=== PATIENT | female | born 1960 | race Caucasian/White ===

== ENCOUNTER 2017-08-14 14:10 | Emergency (ER) | payer BC ==
--- NOTE | 2017-08-14 14:19 | EDM.PDOC ---
ED HPI GENERAL MEDICAL PROBLEM - General Chief Complaint: Upper Extremity Injury/Pain Stated Complaint: INJURY TO RIGHT ARM Time Seen by Provider: 08/14/17 14:14 Source of Information: Reports: Patient History Limitations: Reports: No Limitations - History of Present Illness INITIAL COMMENTS - FREE TEXT/NARRATIVE: Patient states she was going up stairs, tripped, and her right wrist landed on one of the stair edges. She has pain with movement and is in mild discomfort. She denies hitting her head, no loc, no chest pain. She denies drinking, does smoke 1/2 ppd cigarettes, as well as daily marijuana use. No primary doctor, denies surgeries, denies health problems. Takes ibuprofen for pain prn as her only medication. Onset: Today, Sudden Duration: Getting Worse Location: Reports: Upper Extremity, Right Right Wrist Pain Score (Numeric/FACES): 8 - Related Data Allergies Allergy/AdvReac Type Severity Reaction Status Date / Time No Known Allergies Allergy Verified 08/14/17 14:33 Home Meds: Home Meds . [No Known Home Meds] 08/14/17 [History] Review of Systems - Review of Systems Review Of Systems: See Below Constitutional: Reports: No Symptoms Eyes: Reports: No Symptoms Ears: Reports: No Symptoms Nose: Reports: No Symptoms Mouth/Throat: Reports: No Symptoms Respiratory: Reports: No Symptoms Cardiovascular: Reports: No Symptoms GI/Abdominal: Reports: No Symptoms Genitourinary: Reports: No Symptoms Musculoskeletal: Reports: Arm Pain, Hand Pain (right side) Skin: Reports: Wound (abrasions to several toes) Neurological: Reports: No Symptoms Psychiatric: Reports: No Symptoms ED EXAM, GENERAL - Physical Exam Exam: See Below Exam Limited By: No Limitations General Appearance: Alert, WD/WN, Mild Distress Eye Exam: Bilateral Eye: EOMI, Normal Inspection, PERRL Head: Atraumatic, Normocephalic Neck: Normal Inspection, Supple, Non-Tender, Full Range of Motion Respiratory/Chest: No Respiratory Distress, Lungs Clear, Normal Breath Sounds, No Accessory Muscle Use, Chest Non-Tender Cardiovascular: Normal Peripheral Pulses, Regular Rate, Rhythm, No Edema, No Gallop, No JVD, No Murmur, No Rub Extremities: Arm Pain Neurological: Alert, Oriented, CN II-XII Intact, Normal Cognition, Normal Gait, Normal Reflexes, No Motor/Sensory Deficits Psychiatric: Normal Affect, Normal Mood Skin Exam: Warm, Dry, Normal Color, No Rash, Wound/Incision (abrasions to the dorsalis aspect of right toes 2-4) Lymphatic: No Adenopathy Course - Vital Signs Last Recorded V/S: Last Vital Signs Temp 36.6 C 08/14/17 14:20 Pulse 94 08/14/17 14:20 Resp 16 08/14/17 14:20 BP 167/87 H 08/14/17 14:20 Pulse Ox - Orders/Labs/Meds Orders: Active Orders 24 hr Category Date Time Status Elbow 2V Rt [CR] Stat Exams 08/14/17 14:18 Taken Hand 2V Rt [CR] Stat Exams 08/14/17 14:18 Taken Wrist 2V Rt [CR] Stat Exams 08/14/17 14:18 Stop Req - Radiology Interpretation Free Text/Narrative:: x-ray shows non displaced impact fracture of the distal radius. Single sugar-tong splint applied Departure - Departure Time of Disposition: 15:46 Disposition: Home, Self-Care 01 Condition: Good Clinical Impression: Distal radius fracture, right - Discharge Information Instructions: Radial Fracture Forms: ED Department Discharge Additional Instructions: Keep your arm elevated and in the splint. Keep the splint clean and dry. If you develop sudden increase in pain, numbness or tingling to your fingers, then certainly come back to the ED for further evaluation. Follow up in the clinic at [place] for follow up x-rays and further plan of care. I prescribed tramadol 50-100 mg every 6 hours as needed for pain. Drink plenty of water. Please call if you have any questions or concerns. - Problem List & Annotations (1) Distal radius fracture, right SNOMED Code(s): 783006155 Code(s): S52.501A - UNSP FRACTURE OF THE LOWER END OF RIGHT RADIUS, INIT Status: Acute Priority: Medium Current Visit: Yes Qualifiers: Encounter type: initial encounter Fracture type: closed Fracture morphology: other fracture Qualified Code(s): S52.591A - Other fractures of lower end of right radius, initial encounter for closed fracture - Problem List Review Problem List Initiated/Reviewed/Updated: Yes - My Orders Last 24 Hours: My Active Orders 08/14/17 14:18 Elbow 2V Rt [CR] Stat Hand 2V Rt [CR] Stat Wrist 2V Rt [CR] Stat - Assessment/Plan Last 24 Hours: My Active Orders 08/14/17 14:18 Elbow 2V Rt [CR] Stat Hand 2V Rt [CR] Stat Wrist 2V Rt [CR] Stat Assessment:: distal impact radial fracture, non displaced Plan: Keep your arm elevated and in the splint. Keep the splint clean and dry. If you develop sudden increase in pain, numbness or tingling to your fingers, then certainly come back to the ED for further evaluation. Follow up in the clinic at [place] for follow up x-rays and further plan of care. I prescribed tramadol 50-100 mg every 6 hours as needed for pain. Drink plenty of water. Please call if you have any questions or concerns.
[2017-08-14] MEDS: Ketorolac 30 MG/ML SDV IM ONE (15:28)
[2017-08-14] MEDS: traMADol 50 MG Tab PO ONE (15:28)
[2017-08-14] MEDS: Take Home: traMADol 50 MG, 4 Tab Pack PO ONE (15:53)
== END 2017-08-14 15:55 | disposition home or self-care (01) ==
LOC: VM.ED 14:10
DX: S52.501A Unspecified fracture of the lower end of right radius, initial encounter for closed fracture (principal); S90.414A Abrasion, right lesser toe(s), initial encounter; W10.9XXA Fall (on) (from) unspecified stairs and steps, initial encounter
CPT/HCPCS: 29125; 73070; 73120; 96372; 99283; A9270; J1885